=== PATIENT | female | born 1995 | race Caucasian/White ===

== ENCOUNTER 2017-07-28 22:24 | Emergency (ER) | payer OTHER ==
[~2017-07-28 22:24] MED LIST: BUDE10.2 INH; BUTA1CAP6 PO; CIPR-214 PO; LORAZEPAM; PANT20TA27 PO; PROM-110 PO
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
[2017-07-28 22:29] VITALS: BP 147/93
[2017-07-28 23:09] LABS: PLATELET COUNT, AUTOMATED 283 K/uL (150-450)
== END 2017-07-29 02:43 | disposition home or self-care (01) ==
LOC: ER 22:28
DX: F33.1 Major depressive disorder, recurrent, moderate (principal); X78.9XXA Intentional self-harm by unspecified sharp object, initial encounter; Z91.5 Personal history of self-harm; F41.9 Anxiety disorder, unspecified
CPT/HCPCS: 36415; 80305; 80320; 80329; 81001; 81025; 82040; 82247; 82310; 82374; 82435; 82565; 82947; 83735; 84075; 84132; 84155; 84295; 84443; 84450; 84460; 84520; 85025; 99283